=== PATIENT | male | born 1965 | race Two or more races ===

== ENCOUNTER 2023-11-21 21:48 | Emergency (ER) | payer OTHER ==
[~2023-11-21] VITALS: Ht 172.7 cm; Wt 93.0 kg
[2023-11-21 22:08] VITALS: TEMP 98.5
[2023-11-21 22:13] VITALS: BP 158/84; O2SAT 98
[2023-11-21] MEDS ORDERED: CLIN150C16 PO (23:28)
== END 2023-11-21 23:34 | disposition home or self-care (01) ==
LOC: ER 21:49
DX: L03.114 Cellulitis of left upper limb (principal); L03.113 Cellulitis of right upper limb; I10 Essential (primary) hypertension